=== PATIENT | male | born 1985 | race Caucasian/White ===

== ENCOUNTER 2018-05-05 20:22 | Inpatient (IN) | payer MEDICARE, OTHER ==
--- NOTE | 2018-05-05 21:16 | ED ---
General Adult HPI - General Chief complaint: Altered Mental Status Stated complaint: ALTERED MENTAL STATUS Source: patient, EMS Mode of arrival: EMS Limitations: no limitations - History of Present Illness Initial comments: Dictation was produced using [employer] dictation software. please excuse any grammatical, word or spelling errors. Chief Complaint: 33-year-old male past medical history of seizure disorder and cerebral palsy variant mental disorder presents with altered mental status for one month. History of Present Illness: Patient is a 33-year-old male with severe mental disability, seizure disorder presents with mental status changes. Patient is accompanied by mother. He has allegedly been having these symptoms for approximately one month. They were transported here via EMS because family does not have adequate wheeze or transportation. The called neurologist several days ago and was told to report to [facility] for patient's neurologist is located. Patient lives locally called EMS and they were transferred here. According to mother patient has been having these outbursts of mental status changes characterize as laughing, screaming uncontrollably for several hours patient has been exhibiting these behaviors for approximately one month with increasing frequency. Mother also reports that patient has been having choking episodes that are episodic. Mother denies any other symptoms of coughing, neck stiffness, diarrhea, vomiting. Mother is the primary locker room clerk. Patient is unable to provide HPI given severe baseline mental disability. - Related Data Home Medications Medication Instructions Recorded Confirmed Onfi 2.5mg/Ml 5 mg PO BID 05/06/18 05/06/18 Valproic Acid Oral Soln [Depakene 500 mg PO QID 05/06/18 05/06/18 Syrup] carBAMazepine [TEGretol Susp] 180 mg PO QID 05/06/18 05/06/18 levETIRAcetam 150 mg PO BID 05/06/18 05/06/18 Previous Rx's Medication Instructions Recorded Lactulose [Cephulac] 20 gm PO TID PRN #200 ml 05/07/18 Allergies Allergy/AdvReac Type Severity Reaction Status Date / Time No Known Allergies Allergy Verified 05/06/18 06:28 Review of Systems ROS Statement: Those systems with pertinent positive or pertinent negative responses have been documented in the HPI. ROS Other: All systems not noted in ROS Statement are negative. Past Medical History Past Medical History: Seizure Disorder Additional Past Medical History / Comment(s): [place] virus. History of Any Multi-Drug Resistant Organisms: None Reported Past Surgical History: Tonsillectomy Past Psychological History: No Psychological Hx Reported Smoking Status: Never smoker Past Alcohol Use History: None Reported Past Drug Use History: None Reported General Exam - General Exam Comments Initial Comments: PHYSICAL EXAM: General Impression: not in acute distress HEENT: Normocephalic atraumatic, extra-ocular movements intact, pupils equal and reactive to light bilaterally, mucous membranes moist, neck supple Cardiovascular: Heart regular rate and rhythm, S1&S2 audible, no murmurs, rubs or gallops Chest: Lungs clear to auscultation bilaterally, no rhonchi, no wheeze, no rales Abdomen: Bowel sounds present, abdomen soft, non-tender, non-distended, no organomegaly Musculoskeletal: Pulses present and equal in all extremities, no peripheral edema Neurological: CN II-XII grossly intact, no focal motor or sensory deficits noted Skin: Intact with no visualized rashes Limitations: no limitations Course Vital Signs 05/05/18 20:27 Temperature 97 F L Pulse Rate 105 H Respiratory 18 Rate Blood Pressure 130/78 O2 Sat by Pulse 96 Oximetry Medical Decision Making - Medical Decision Making ED course: 83-year-old male with chief complaint of mental status changes for approximately one month. Patient has complex medical history secondary to mental retardation . Patient hemodynamically stable. Afebrile.Laboratory evaluation was obtained. Complete blood count is normal. Metabolic panel shows findings within acceptable limits. Ammonia level is 93. Urinalysis is negative. Given these findings patient's clinical presentation is consistent with hepatic encephalopathy secondary to hyperammonemia. At this point it is unclear what is caused by however it may be likely due to antiseizure medications. Nonetheless, patient to be admitted for acute mental status changes. At this point it is unclear whether patient is at baseline currently however mother reports that he is not. Patient given oral lactulose. EKG interpretation: Ventricular rate 84. No TN prolongation, no QTC prolongation , no ST or T-wave changes noted. TN interval 158, QRS 88, QTC 404 Overall, this EKG is unremarkable - Lab Data Result diagrams: 05/05/18 21:24 05/05/18 21:24 Lab Results 05/05/18 05/05/18 05/05/18 Range/Units 21:24 21:24 21:24 WBC 6.8 (3.8-10.6) k/uL RBC 4.38 (4.30-5.90) m/uL Hgb 13.2 (13.0-17.5) gm/dL Hct 39.1 (39.0-53.0) % MCV 89.3 (80.0-100.0) fL MCH 30.2 (25.0-35.0) pg MCHC 33.8 (31.0-37.0) g/dL RDW 13.6 (11.5-15.5) % Plt Count 362 (150-450) k/uL Neutrophils % 49 % Lymphocytes % 36 % Monocytes % 10 % Eosinophils % 1 % Basophils % 1 % Neutrophils # 3.4 (1.3-7.7) k/uL Lymphocytes # 2.4 (1.0-4.8) k/uL Monocytes # 0.7 (0-1.0) k/uL Eosinophils # 0.0 (0-0.7) k/uL Basophils # 0.1 (0-0.2) k/uL Sodium 134 L (137-145) mmol/L Potassium 4.6 (3.5-5.1) mmol/L Chloride 98 (98-107) mmol/L Carbon Dioxide 24 (22-30) mmol/L Anion Gap 12 mmol/L BUN 15 (9-20) mg/dL Creatinine 0.40 L (0.66-1.25) mg/dL Est GFR (CKD-EPI)AfAm >90 (>60 ml/min/1.73 sqM) Est GFR (CKD-EPI)NonAf >90 (>60 ml/min/1.73 sqM) Glucose 95 (74-99) mg/dL Estimated Ave Glu mg/dL 94 Hemoglobin A1c 4.9 (4.0-6.0) % Calcium 9.9 (8.4-10.2) mg/dL Magnesium 1.7 (1.6-2.3) mg/dL Total Bilirubin 0.1 L (0.2-1.3) mg/dL AST 17 (17-59) U/L ALT 23 (21-72) U/L Alkaline Phosphatase 51 (38-126) U/L Ammonia (<30) umol/L Total Protein 7.2 (6.3-8.2) g/dL Albumin 4.5 (3.5-5.0) g/dL Urine Color Urine Appearance (Clear) Urine pH (5.0-8.0) Ur Specific [place] (1.001-1.035) Urine Protein (Negative) Urine Glucose (UA) (Negative) Urine Ketones (Negative) Urine Blood (Negative) Urine Nitrite (Negative) Urine Bilirubin (Negative) Urine Urobilinogen (<2.0) mg/dL Ur Leukocyte Esterase (Negative) Urine RBC (0-5) /hpf Urine WBC (0-5) /hpf Urine Bacteria (None) /hpf Urine Mucus (None) /hpf 05/05/18 05/05/18 Range/Units 21:24 23:00 WBC (3.8-10.6) k/uL RBC (4.30-5.90) m/uL Hgb (13.0-17.5) gm/dL Hct (39.0-53.0) % MCV (80.0-100.0) fL MCH (25.0-35.0) pg MCHC (31.0-37.0) g/dL RDW (11.5-15.5) % Plt Count (150-450) k/uL Neutrophils % % Lymphocytes % % Monocytes % % Eosinophils % % Basophils % % Neutrophils # (1.3-7.7) k/uL Lymphocytes # (1.0-4.8) k/uL Monocytes # (0-1.0) k/uL Eosinophils # (0-0.7) k/uL Basophils # (0-0.2) k/uL Sodium (137-145) mmol/L Potassium (3.5-5.1) mmol/L Chloride (98-107) mmol/L Carbon Dioxide (22-30) mmol/L Anion Gap mmol/L BUN (9-20) mg/dL Creatinine (0.66-1.25) mg/dL Est GFR (CKD-EPI)AfAm (>60 ml/min/1.73 sqM) Est GFR (CKD-EPI)NonAf (>60 ml/min/1.73 sqM) Glucose (74-99) mg/dL Estimated Ave Glu mg/dL Hemoglobin A1c (4.0-6.0) % Calcium (8.4-10.2) mg/dL Magnesium (1.6-2.3) mg/dL Total Bilirubin (0.2-1.3) mg/dL AST (17-59) U/L ALT (21-72) U/L Alkaline Phosphatase (38-126) U/L Ammonia 93 H (<30) umol/L Total Protein (6.3-8.2) g/dL Albumin (3.5-5.0) g/dL Urine Color Yellow Urine Appearance Clear (Clear) Urine pH 7.5 (5.0-8.0) Ur Specific [place] 1.027 (1.001-1.035) Urine Protein Trace H (Negative) Urine Glucose (UA) Negative (Negative) Urine Ketones Negative (Negative) Urine Blood Negative (Negative) Urine Nitrite Negative (Negative) Urine Bilirubin Negative (Negative) Urine Urobilinogen <2.0 (<2.0) mg/dL Ur Leukocyte Esterase Negative (Negative) Urine RBC 2 (0-5) /hpf Urine WBC 1 (0-5) /hpf Urine Bacteria Rare H (None) /hpf Urine Mucus Rare H (None) /hpf Disposition Clinical Impression: Altered mental status Disposition: ADMITTED IP TO THIS HOSP Condition: Good Time of Disposition: 01:00
[2018-05-05 21:41] LABS: Basophils # (A) 0.1 k/uL (0-0.2); Basophils % (A) 1 %; Eosinophils % (A) 1 %; HCT 39.1 % (39.0-53.0); HGB 13.2 gm/dL (13.0-17.5); Lymphocytes # (A) 2.4 k/uL (1.0-4.8); Lymphocytes % (A) 36 %; MCH 30.2 pg (25.0-35.0); MCHC 33.8 g/dL (31.0-37.0); MCV 89.3 fL (80.0-100.0); Mean Platelet Volume 6.3; Monocytes # (A) 0.7 k/uL (0-1.0); Monocytes % (A) 10 %; Neutrophils # (A) 3.4 k/uL (1.3-7.7); Neutrophils % (A) 49 %; Platelet Count 362 k/uL (150-450); RBC 4.38 m/uL (4.30-5.90); RDW 13.6 % (11.5-15.5); WBC 6.8 k/uL (3.8-10.6)
[2018-05-05 21:48] LABS: ALT 23 U/L (21-72); AST 17 U/L (17-59); Albumin 4.5 g/dL (3.5-5.0); Alkaline Phosphatase 51 U/L (38-126); Anion Gap 12 mmol/L; Blood Urea Nitrogen 15 mg/dL (9-20); Calcium 9.9 mg/dL (8.4-10.2); Carbon Dioxide 24 mmol/L (22-30); Chloride 98 mmol/L (98-107); Glucose 95 mg/dL (74-99); Magnesium 1.7 mg/dL (1.6-2.3); Potassium 4.6 mmol/L (3.5-5.1); Sodium 134 mmol/L (137-145); Total Bilirubin 0.1 mg/dL (0.2-1.3); Total Protein 7.2 g/dL (6.3-8.2)
--- NOTE | 2018-05-05 21:58 | XR ---
EXAMINATION TYPE: XR abdomen acute w cxr - 3V DATE OF EXAM: 05/05/2018 COMPARISON: NONE HISTORY: Pain, fever, unable to verbalize TECHNIQUE: Supine, upright, and left side down lateral decubitus views of the abdomen are obtained. FINDINGS: Visualized lung bases and pleural spaces are unremarkable. There is no evidence for pneumoperitoneum. The bowel gas pattern is remarkable for excessive colonic stool throughout the entirety of the colon and including the rectosigmoid. There is no isaac bowel obstruction. No sizeable air fluid levels. No mass or mass effect. No unusual calcifications. No acute skeletal findings. IMPRESSION: Marked constipation.
--- NOTE | 2018-05-05 22:17 | CT ---
EXAMINATION: CT brain wo con DATE AND TIME: 05/05/2018 9:49 PM ORDERING PROVIDER: Khanh Lopez DO CLINICAL INDICATION: Pain mental status changes TECHNIQUE: Standard departmental protocol. COMPARISON: None. DESCRIPTION: The calvarium is intact. There is no intracranial hemorrhage. There is no mass or mass effect. There is no definite new attenuation defect. There is prominent global atrophy, particularly up over the convexities. Remainder of the intra-axial and extra-axial compartment examination is negative for acute findings. The paranasal sinuses, middle ear cavities, and mastoid sinus air cells are clear. The orbits are int act. IMPRESSION: NO DEFINITE ACUTE PROCESS, CT WITHOUT CONTRAST.
[2018-05-06] MEDS ORDERED: cefTRIAXone IN SWFI 1,000 MG/10 ML SYRINGE IVP ONE (01:10)
[2018-05-06 05:38] VITALS: BMI 29.5
[2018-05-06 06:27] LABS: Appearance,Urine Clear (Clear); Bacteria,Urine Rare /hpf; Bilirubin,Urine Negative (Negative); Blood,Urine Negative (Negative); Color,Urine Yellow; Glucose,Urine (UA) Negative (Negative); Ketones,Urine Negative (Negative); Leukocyte Esterase,Urine Negative (Negative); Mucus,Urine Rare /hpf; Nitrite,Urine Negative (Negative); PH, Urine 7.5 (5.0-8.0); Protein,Urine Trace (Negative); RBC,Urine 2 /hpf (0-5); Specific Gravity,Urine 1.027 (1.001-1.035); Urobilinogen,Urine <2.0 mg/dL (<2.0); WBC,Urine 1 /hpf (0-5)
[2018-05-06] MEDS: FAMOTIDINE 20 MG/2 ML VIAL IV SCH ×2 (07:44→23:36)
[2018-05-06] MEDS ORDERED: BISACODYL 10 MG SUPP RECTAL STA (11:07)
--- NOTE | 2018-05-06 11:15 | P.CONS ---
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 Mother provided history. Upon admission serum elevated ammonia level 93. LFTs normal. White count 6.8. Hemoglobin 13.2. Platelet 362. No history of known liver disease hepatitis. Mother states he does CT of the abdomen and pelvis a month ago at [facility] evaluation for possible UTI no mentioning of any liver disease was told CT showed inflamed lymph nodes possible viral in nature. Patient has been on the same seizure medications for years with the exception of an additional medication that was at about 9 months ago called Clobazam; use for treatment of seizures caused by Ariel-Gastaut syndrome. Patient has not slept for more than 15 hours. He was screaming at home a lot prior to admission. Presently he is quite. No bowel movement for the last 6 days mother is requesting a laxative. No reports of hematemesis hematochezia or melena. Afebrile. Review of Systems Unable to obtain provided by mother Constitutional: Denies fever, chills, sweats, weight gain, or loss. Nonverbal. HEENT: Negative for migraines, blurred vision or loss, earaches, drainage, tinnitus, oral mucosal lesions, can only tolerate liquid diet no solids chronic dysphagia. Cardiac: Negative for chest pain, arrhythmias, or palpitation. Respiratory: Negative for shortness of breath, hemoptysis, cough, or sputum production. Gastrointestinal: See HPI for pertinent findings. Genitourinary: Negative for hematuria, urgency, frequency, polyuria, dysuria, or penile discharge. Musculoskeletal: Chronic extremity contractures bedridden nonambulatory. Neurologic: Negative for stroke or TIA. Endocrine: Negative for thyroid problems. Skin: Negative for rash or itching. Psychiatric: Negative history for depression and anxiety Past Medical History Past Medical History: Seizure Disorder Additional Past Medical History / Comment(s): West Nile Virus. Seizures - states that they are not grand mal seizures and are very mild but occur often. Patient has cerebral palsy. History of Any Multi-Drug Resistant Organisms: None Reported Past Surgical History: Tonsillectomy Past Anesthesia/Blood Transfusion Reactions: No Reported Reaction Past Psychological History: No Psychological Hx Reported Smoking Status: Never smoker Past Alcohol Use History: None Reported Past Drug Use History: None Reported Medications and Allergies Home Medications Medication Instructions Recorded Confirmed Type Onfi 2.5mg/Ml 5 mg PO BID 05/06/18 05/06/18 History Valproic Acid Oral Soln [Depakene 500 mg PO QID 05/06/18 05/06/18 History Syrup] carBAMazepine [TEGretol Susp] 180 mg PO QID 05/06/18 05/06/18 History levETIRAcetam 150 mg PO BID 05/06/18 05/06/18 History Lactulose [Cephulac] 20 gm PO TID PRN #200 ml 05/07/18 Rx Allergies Allergy/AdvReac Type Severity Reaction Status Date / Time No Known Allergies Allergy Verified 05/06/18 06:28 Physical Exam Vitals: Vital Signs Temp Pulse Pulse Resp BP BP Pulse Ox 05/06/18 07:30 98.8 F 90 16 104/59 95 05/06/18 02:00 99.0 F 96 16 122/68 98 05/05/18 20:27 97 F L 105 H 18 130/78 96 Intake and Output 05/05/18 05/06/18 05/06/18 22:59 06:59 14:59 Other: Voiding Method Diaper Diaper Incontinent Incontinent # Voids 2 Weight 68.946 kg 68.5 kg General appearance: The patient is alert, in no acute distress. HET: Head is normocephalic and atraumatic. Pupils are equal and reactive. Oropharynx is clear without lesions. Neck: Supple without lymphadenopathy. Trachea midline. Heart: S1 S2. Regular rate and rhythm. Lungs: No crackles or wheezes are heard. Abdomen: Soft, nontender, nondistended with bowel sounds. No peritoneal signs. No palpable organomegaly or masses. Extremities: Contracted extremities. Moves all extremities. Results CBC & Chem 7: 05/05/18 21:24 05/05/18 21:24 Labs: Abnormal Lab Results - Last 24 Hours (Table) 05/05/18 05/05/18 05/05/18 Range/Units 21:24 21:24 23:00 Sodium 134 L (137-145) mmol/L Creatinine 0.40 L (0.66-1.25) mg/dL Total Bilirubin 0.1 L (0.2-1.3) mg/dL Ammonia 93 H (<30) umol/L Urine Protein Trace H (Negative) Urine Bacteria Rare H (None) /hpf Urine Mucus Rare H (None) /hpf Assessment and Plan (1) Hyperammonemia Narrative/Plan: No clinical evidence to suggest liver disease possible medication valproic acid related possible clobazam. Clobazam recently prescribed about 9 months ago for treatment of seizures. Status: Acute Code(s): E72.20 - DISORDER OF UREA CYCLE METABOLISM, UNSPECIFIED SNOMED Code(s): 6974101 (2) Ariel-Gastaut syndrome Narrative/Plan: With seizures Status: Chronic Code(s): G40.812 - ARIEL-GASTAUT SYNDROME, NOT INTRACTABLE, W /O STAT EPI SNOMED Code(s): 696156221 (3) Constipated Status: Acute Code(s): K59.00 - CONSTIPATION, UNSPECIFIED SNOMED Code(s): 59314293 Plan: 1. Dulcolax suppository 1. Lactulose 20 g 3 times a day this will help with constipation as well as elevated ammonia level. Hold dose for diarrhea. 2. Repeat ammonia in a.m. 3. Will review CT A/P at [facility] last month; parent reports no mentioning of liver abnormalities. 4. Patient has an appointment with neurologist first week of June. Thank you for this kind referral and the opportunity to participate in the care of your patient. This consultation was discussed with Dr. Chris. The impression and plan of care have been directed as dictated.
[2018-05-06] MEDS: LACTULOSE 20 GM/30 ML CUP PO SCH ×3 (11:25→21:20)
[2018-05-06] MEDS: ONFI PO SCH (12:26)
[2018-05-06] MEDS: VALPROIC ACID 250 MG/5 ML PO SCH ×3 (12:26→23:33)
[2018-05-06] MEDS: CARBAMAZEPINE 100 MG/5 ML PO SCH ×3 (12:27→23:33)
[2018-05-06] MEDS: KEPPRA 100 MG/ML PO SCH ×2 (12:28→23:34)
[2018-05-06] MEDS ORDERED: levETIRAcetam ORAL SOLN 500 MG/5 ML CUP PO SCH (13:30)
[2018-05-06] MEDS ORDERED: CARBAMAZEPINE PO SCH (13:30)
[2018-05-06 14:06] LABS: Carbamazepine (Tegretol) 8.2 ug/mL
[2018-05-06 14:19] LABS: Valproic Acid (Depakene) 68.6 ug/mL
--- NOTE | 2018-05-06 15:12 | P.HPIM ---
History of Present Illness 33-year-old gentleman with a past medical history of [place]-Gastaut syndrome with seizures lifelong anti-seizure medications presents with agitation and insomnia intermittently over the last month. Mother provided history. For last month patient also had some but is personally changes and stating gaze because of which patient is concerned about seizures. Upon admission serum elevated ammonia level 93. Patient is on valproic acid which can cause elevated ammonia levels. Valproic acid will be discontinued will get the lab levels of Depakote, carbamazepine and Keppra area at patient was started on lactulose for constipation gastroneurology evaluated the patient no history was obtained from the patient. Review of Systems Unable to obtain Past Medical History Past Medical History: Seizure Disorder Additional Past Medical History / Comment(s): West Nile Virus. Seizures - states that they are not grand mal seizures and are very mild but occur often. Patient has cerebral palsy. History of Any Multi-Drug Resistant Organisms: None Reported Past Surgical History: Tonsillectomy Past Anesthesia/Blood Transfusion Reactions: No Reported Reaction Past Psychological History: No Psychological Hx Reported Smoking Status: Never smoker Past Alcohol Use History: None Reported Past Drug Use History: None Reported Medications and Allergies Home Medications Medication Instructions Recorded Confirmed Type Onfi 2.5mg/Ml 5 mg PO BID 05/06/18 05/06/18 History Valproic Acid Oral Soln [Depakene 500 mg PO QID 05/06/18 05/06/18 History Syrup] carBAMazepine [TEGretol Susp] 180 mg PO QID 05/06/18 05/06/18 History levETIRAcetam 150 mg PO BID 05/06/18 05/06/18 History Allergies Allergy/AdvReac Type Severity Reaction Status Date / Time No Known Allergies Allergy Verified 05/06/18 06:28 Physical Exam Vitals: Vital Signs Temp Pulse Pulse Resp BP BP Pulse Ox 05/06/18 07:30 98.8 F 90 16 104/59 95 05/06/18 02:00 99.0 F 96 16 122/68 98 05/05/18 20:27 97 F L 105 H 18 130/78 96 Intake and Output 05/06/18 05/06/18 05/06/18 06:59 14:59 22:59 Other: Voiding Method Diaper Diaper Incontinent Incontinent # Voids 2 1 Weight 68.5 kg PHYSICAL EXAMINATION: GENERAL: The patient is alert and nonverbal, not in any acute distress. Patient has some chronic contractures nonverbal HEENT: Pupils are round and equally reacting to light. EOMI. No scleral icterus. No conjunctival pallor. Normocephalic, atraumatic. No pharyngeal erythema. No thyromegaly. CARDIOVASCULAR: S1 and S2 present. No murmurs, rubs, or gallops. PULMONARY: Chest is clear to auscultation, no wheezing or crackles. ABDOMEN: Soft, nontender, nondistended, normoactive bowel sounds. No palpable organomegaly. MUSCULOSKELETAL: No joint swelling or deformity. EXTREMITIES: No cyanosis, clubbing, or pedal edema. NEUROLOGICAL: No new focal weakness but does have chronic contractures. SKIN: No rashes. Results CBC & Chem 7: 05/05/18 21:24 05/05/18 21:24 Labs: Abnormal Lab Results - Last 24 Hours (Table) 05/05/18 05/05/18 05/05/18 Range/Units 21:24 21:24 23:00 Sodium 134 L (137-145) mmol/L Creatinine 0.40 L (0.66-1.25) mg/dL Total Bilirubin 0.1 L (0.2-1.3) mg/dL Ammonia 93 H (<30) umol/L Urine Protein Trace H (Negative) Urine Bacteria Rare H (None) /hpf Urine Mucus Rare H (None) /hpf Microbiology - Last 24 Hours (Table) 05/05/18 23:00 Urine Culture - Preliminary Urine,Voided Thrombosis Risk Factor Assmnt - Choose All That Apply Any of the Below Risk Factors Present?: Yes Each Factor Represents 1 point: Medical pt on bed rest Other Risk Factors: Yes Each Risk Factor Represents 2 Points: Patient confined to bed Other congenital or acquired thrombophilia - If yes, enter type in comment: No Thrombosis Risk Factor Assessment Total Risk Factor Score: 3 Thrombosis Risk Factor Assessment Level: Moderate Risk Assessment and Plan Plan: - possibility of breakthrough seizure: Levels of his antiseizure medications will be obtained patient is an seizure precautions, and urology was consulted patient may need an EEG. Because of hyper ammoniemia valproic acid will be discontinued -Hyperammonemia and personality changes can be related to valproic acid which will be discontinued -Abel-Gastaut syndrome -Constipation: Lactulose should help with the hyperammonemia and constipation as well.
[2018-05-06 15:22] LABS: Hemoglobin A1C 4.9 % (4.0-6.0)
[2018-05-07] MEDS: ONFI PO SCH (03:59)
[2018-05-07] MEDS: CARBAMAZEPINE 100 MG/5 ML PO SCH (04:00)
[2018-05-07] MEDS: VALPROIC ACID 250 MG/5 ML PO SCH (04:00)
[2018-05-07 07:01] VITALS: BP 115/68; PULSE 110; RESP 18; TEMP 97.5
[2018-05-07] MEDS: LACTULOSE 20 GM/30 ML CUP PO SCH (09:27)
[2018-05-07] MEDS: FAMOTIDINE 20 MG/2 ML VIAL IV SCH (09:27)
--- NOTE | 2018-05-07 10:10 | CONS ---
CONSULTATION DATE OF CONSULTATION: 05/06/2018. CHIEF COMPLAINT: Seizure disorder and agitation. HISTORY OF PRESENT ILLNESS: The patient is a 33-year-old male who has a history of [place]-Gastaut syndrome and profound mental delay. He has a long-standing history of seizures since his childhood and is currently taking Keppra, Onfi, Depakote, and Tegretol at home. Over the past few days, he has been quite agitated and combative, which is not like his usual self. He does have occasional drop attacks, but has not had any full-blown generalized tonic- clonic seizures in quite a while, according to his mother. When he was brought into the emergency room, a CT scan of the brain was done, which showed no acute findings. His comprehensive metabolic profile and CBC showed no significant abnormalities. His serum ammonia level was elevated at 93. He was started on IV hydration and admitted for further workup and management. His repeat ammonia level has normalized to 25. His Depakote level and Tegretol levels were both therapeutic at 68.6 and 8.2 respectively. At the time of my evaluation, he is sleeping in his bed and appears to be comfortable. His mother states that his agitation has improved as he is now resting. PAST MEDICAL HISTORY: Abel-Gastaut syndrome, history of West Nile virus, profound mental delay, history of tonsillectomy. SOCIAL HISTORY: There is no history of any tobacco, alcohol, or drug use. FAMILY HISTORY: Noncontributory. HOME MEDICATIONS: Reviewed in the chart. ALLERGIES: No known drug allergies. REVIEW OF SYSTEM: Unable to obtain as the patient is nonverbal. PHYSICAL EXAM: Vital signs show a temperature of 96.6, pulse 93, respiration 18, blood pressure 126/77. GENERAL APPEARANCE: The patient is a male who appears sleeping. He is arousable, but is nonverbal. He does make occasional eye contact. HEENT: Normocephalic, atraumatic, no obvious facial asymmetry is seen. Neck is supple with no masses felt. CARDIOVASCULAR: Regular rate and rhythm. Abdomen is nondistended. Extremities showed no edema. Significant contractures are noticed. NEUROLOGICAL EXAM: The patient is arousable and does make eye contact. He is nonverbal. He does not follow any commands. No seizure-like activity is seen. No obvious facial asymmetry is seen on cranial nerve testing. Spasticity is noticed on muscle tone testing in all 4 extremities. IMPRESSION: 1. Abel-Gastaut syndrome, seizure disorder. 2. Increased agitation. 3. Hepatic encephalopathy. 4. Spasticity and contractures. RECOMMENDATION: The patient's seizures appear to be well controlled from a generalized tonic-clonic seizure standpoint. He does occasionally have drop attacks according to his mother, but the patient is usually bed bound. His current mental status changes could be due to his Keppra therapy. I had a lengthy discussion with the mother regarding the option of switching Keppra to Vimpat. At this time, she is hesitant about changing any of his seizure medications because this usually leads to breakthrough generalized tonic-clonic seizures. I do recommend that she continues to monitor the patient over the next few weeks and if the agitation gets worse, we can revisit this idea in the clinic. As for his spasticity and contractures, the patient would likely benefit from intrathecal baclofen therapy. This will also be discussed in outpatient clinic. No further inpatient neurological workup is needed. I will continue to follow with you as needed. TIFFANIE / VERO: [id number] /
--- NOTE | 2018-05-07 11:46 | P.PN ---
Subjective Progress Note Date: 05/07/18 Principal diagnosis: Hyperammonemia Serum ammonia normalize. Passing bowel movements. Family requesting discharge. Objective - Vital Signs Vital signs: Vital Signs Temp 97.5 F L 05/07/18 07:00 Pulse 110 H 05/07/18 07:00 Resp 18 05/07/18 07:00 BP 115/68 05/07/18 07:00 Pulse Ox 95 05/07/18 07:00 Intake & Output 05/06/18 05/07/18 05/07/18 18:59 06:59 18:59 Weight 68.5 kg Other: Voiding Method Diaper Diaper Incontinent Incontinent # Voids 2 2 # Bowel Movements 1 - Exam General appearance: The patient is alert, in no acute distress. HET: Head is normocephalic and atraumatic. Pupils are equal and reactive. Oropharynx is clear without lesions. Neck: Supple without lymphadenopathy. Trachea midline. Heart: S1 S2. Regular rate and rhythm. Lungs: No crackles or wheezes are heard. Abdomen: Soft, nontender, nondistended with bowel sounds. No peritoneal signs. No palpable organomegaly or masses. Extremities: Contracted extremities. Moves all extremities. - Labs CBC & Chem 7: 05/05/18 21:24 05/05/18 21:24 Labs: Microbiology - Last 24 Hours (Table) 05/05/18 23:00 Urine Culture - Preliminary Urine,Voided Assessment and Plan (1) Hyperammonemia Narrative/Plan: No clinical evidence to suggest liver disease possible valproic acid related possible clobazam. Clobazam recently prescribed about 9 months ago for treatment of seizures. 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 Discontinue lactulose. Discharge per medicine and neurology. Follow with GI as needed. 2. We'll defer recommendations for continuance of home medications seizure medications to neurology service. Assessment and plan a care discussed with Dr. Chris
--- NOTE | 2018-05-07 16:58 | DS ---
DISCHARGE SUMMARY FINAL DIAGNOSES: 1. Breakthrough seizures and uncontrolled seizures. 2. Hepatic encephalopathy. 3. Hyperammonemia. 4. Abel-Gastaut syndrome. 5. Constipation. DISCHARGE DISPOSITION: The patient discharged in stable condition with guarded prognosis. HISTORY OF PRESENT ILLNESS: This 33-year-old gentleman admitted with past medical history of multiple medical problems was admitted with breakthrough seizures and hyperammonemia, hepatic encephalopathy and constipation. The patient had lactulose. The patient improved significantly. Sensorium improved and the mother would like the patient to be discharged and discharge cleared by Dr. Guerrero also. On exam, vitals are stable. CARDIOVASCULAR: S1, S2. ABDOMEN: Soft. NERVOUS SYSTEM: Unchanged. DISCHARGE ADVICE AND MEDICATIONS: 1. Diet is cardiac. 2. Activities limited until followup. 3. Follow up with Dr. Mahajan in 2-3 days. 4. Follow with Neurology, Dr. Guerrero as recommended. MEDICATIONS: 1. Tegretol 180 mg p.o. q.i.d. 2. Keppra 150 mg p.o. b.i.d. 3. Valproic acid 1.5 mg p.o. b.i.d. 4. Lactulose 20 g t.i.d. p.r.n. Once again, the patient is being discharged in stable condition with guarded prognosis. See orders for list of medications. MMODL / IJN: [id number] /
== END 2018-05-07 12:14 | disposition home or self-care (01) | DRG 442 ==
LOC: EC 20:22 → 4MS4W 23:20
PROVIDERS: ADMIT Hospitalist; ATTEND Hospitalist
DX: K72.90 Hepatic failure, unspecified without coma (principal); F72 Severe intellectual disabilities; G40.812 Lennox-Gastaut syndrome, not intractable, without status epilepticus; E72.20 Disorder of urea cycle metabolism, unspecified; K59.00 Constipation, unspecified; G80.9 Cerebral palsy, unspecified; G47.00 Insomnia, unspecified; Z79.899 Other long term (current) drug therapy; Z98.890 Other specified postprocedural states
CPT/HCPCS: 36415; 70450; 74022; 80053; 80156; 80164; 80177; 81003; 82140; 83036; 83735; 85025; 87086; 93005; 99285

== ENCOUNTER 2018-05-13 13:49 | Inpatient (IN) | payer MEDICARE, OTHER ==
[2018-05-13 15:07] LABS: Appearance,Urine Clear (Clear); Bilirubin,Urine Negative (Negative); Blood,Urine Negative (Negative); Color,Urine Yellow; Glucose,Urine (UA) Negative (Negative); Ketones,Urine Trace (Negative); Leukocyte Esterase,Urine Negative (Negative); Nitrite,Urine Negative (Negative); Protein,Urine Trace (Negative); Specific Gravity,Urine 1.031 (1.001-1.035); Urobilinogen,Urine <2.0 mg/dL (<2.0)
[2018-05-13 15:11] LABS: Basophils # (A) 0.1 k/uL (0-0.2); Basophils % (A) 1 %; Eosinophils # (A) 0.1 k/uL (0-0.7); Eosinophils % (A) 1 %; HCT 39.5 % (39.0-53.0); HGB 12.9 gm/dL (13.0-17.5); Lymphocytes # (A) 2.6 k/uL (1.0-4.8); Lymphocytes % (A) 34 %; MCH 28.9 pg (25.0-35.0); MCHC 32.6 g/dL (31.0-37.0); MCV 88.7 fL (80.0-100.0); Mean Platelet Volume 6.8; Monocytes # (A) 0.6 k/uL (0-1.0); Monocytes % (A) 8 %; Neutrophils % (A) 52 %; Platelet Count 399 k/uL (150-450); RBC 4.45 m/uL (4.30-5.90); RDW 13.3 % (11.5-15.5); WBC 7.6 k/uL (3.8-10.6)
[2018-05-13 15:16] LABS: ALT 45 U/L (21-72); AST 20 U/L (17-59); Albumin 4.7 g/dL (3.5-5.0); Alkaline Phosphatase 67 U/L (38-126); Amylase 74 U/L (30-110); Anion Gap 12 mmol/L; Blood Urea Nitrogen 16 mg/dL (9-20); Calcium 10.1 mg/dL (8.4-10.2); Carbon Dioxide 24 mmol/L (22-30); Chloride 101 mmol/L (98-107); Glucose 91 mg/dL (74-99); Lipase 86 U/L (23-300); Potassium 4.8 mmol/L (3.5-5.1); Sodium 137 mmol/L (137-145); Total Bilirubin 0.1 mg/dL (0.2-1.3); Total Protein 7.5 g/dL (6.3-8.2)
--- NOTE | 2018-05-13 15:18 | ED ---
General Adult HPI - General Chief complaint: Abdominal Pain Stated complaint: Pain Time Seen by Provider: 05/13/18 13:51 Source: family, EMS, RN notes reviewed Mode of arrival: EMS Limitations: altered mental status - History of Present Illness Initial comments: 33-year-old male with significant mental disability presents to the emergency department for a chief complaint of altered mental status. Patient was recently diagnosed with hepatic encephalopathy and treated in this hospital. He was discharged 4 days ago. Mother states patient was returning to a normal baseline over the past few days. However last night patient began having symptoms similar to when his ammonia levels were increased. Mother states patient has been moaning since 9 PM last night and turning his head back and forth. Patient has not slept in over 24 hours. Mother is concerned that ammonia levels are high again.Patient has no other complaints at this time including shortness of breath, chest pain, abdominal pain, nausea or vomiting, headache, or visual changes. - Related Data Home Medications Medication Instructions Recorded Confirmed Onfi 2.5mg/Ml 5 mg PO BID 05/06/18 05/13/18 Valproic Acid Oral Soln [Depakene 500 mg PO QID 05/06/18 05/13/18 Syrup] carBAMazepine [TEGretol Susp] 180 mg PO QID 05/06/18 05/13/18 levETIRAcetam [levETIRAcetam Oral 150 mg PO BID 05/06/18 05/13/18 Solution] Previous Rx's Medication Instructions Recorded Lactulose [Cephulac] 20 gm PO TID PRN #200 ml 05/07/18 Allergies Allergy/AdvReac Type Severity Reaction Status Date / Time No Known Allergies Allergy Verified 05/13/18 14:40 Review of Systems ROS Statement: Those systems with pertinent positive or pertinent negative responses have been documented in the HPI. ROS Other: All systems not noted in ROS Statement are negative. Past Medical History Past Medical History: Seizure Disorder Additional Past Medical History / Comment(s): [place] virus. enchelopathy History of Any Multi-Drug Resistant Organisms: None Reported Past Surgical History: Tonsillectomy Past Anesthesia/Blood Transfusion Reactions: No Reported Reaction Past Psychological History: No Psychological Hx Reported Smoking Status: Never smoker Past Alcohol Use History: None Reported Past Drug Use History: None Reported General Exam Limitations: altered mental status Head exam: Present: atraumatic, normocephalic, normal inspection Eye exam: Present: normal appearance. Absent: scleral icterus, conjunctival injection ENT exam: Present: normal exam, mucous membranes moist Respiratory exam: Present: normal lung sounds bilaterally. Absent: respiratory distress, wheezes, rales, rhonchi, stridor Cardiovascular Exam: Present: regular rate, normal rhythm, normal heart sounds. Absent: systolic murmur, diastolic murmur, rubs, gallop, clicks GI/Abdominal exam: Present: soft, normal bowel sounds. Absent: distended, tenderness, guarding, rebound, rigid Course Vital Signs 05/13/18 13:53 Temperature 97.3 F L Pulse Rate 91 Respiratory 18 Rate Blood Pressure 150/73 O2 Sat by Pulse 96 Oximetry Medical Decision Making - Medical Decision Making 33-year-old male presents to the emergency department for a chief complaint of altered mental status. Patient has a history of hepatic encephalopathy in the past week and was discharged from the hospital 4 days ago. Mother states patient was almost back to baseline over the past few days. However, patient has been moaning since 9 PM last night and turning his head back and forth, which he is doing in the ED. He has not slept in over 24 hours. CBC and CMP unremarkable. Ammonia levels did increase 20 points in the past 20 days. Mother is very upset that patient will not sleep and she cannot care for him like this. Mother states that she has afraid his ammonia levels are going back up to the were as he is acting how he did on admission. Patient will be admitted for further management. He was given a dose of lactulose in the emergency department. - Lab Data Result diagrams: 05/13/18 14:43 05/13/18 14:43 Lab Results 05/13/18 05/13/18 05/13/18 Range/Units 14:43 14:43 14:43 WBC 7.6 (3.8-10.6) k/uL RBC 4.45 (4.30-5.90) m/uL Hgb 12.9 L (13.0-17.5) gm/dL Hct 39.5 (39.0-53.0) % MCV 88.7 (80.0-100.0) fL MCH 28.9 (25.0-35.0) pg MCHC 32.6 (31.0-37.0) g/dL RDW 13.3 (11.5-15.5) % Plt Count 399 (150-450) k/uL Neutrophils % 52 % Lymphocytes % 34 % Monocytes % 8 % Eosinophils % 1 % Basophils % 1 % Neutrophils # 4.0 (1.3-7.7) k/uL Lymphocytes # 2.6 (1.0-4.8) k/uL Monocytes # 0.6 (0-1.0) k/uL Eosinophils # 0.1 (0-0.7) k/uL Basophils # 0.1 (0-0.2) k/uL Sodium 137 (137-145) mmol/L Potassium 4.8 (3.5-5.1) mmol/L Chloride 101 (98-107) mmol/L Carbon Dioxide 24 (22-30) mmol/L Anion Gap 12 mmol/L BUN 16 (9-20) mg/dL Creatinine 0.40 L (0.66-1.25) mg/dL Est GFR (CKD-EPI)AfAm >90 (>60 ml/min/1.73 sqM) Est GFR (CKD-EPI)NonAf >90 (>60 ml/min/1.73 sqM) Glucose 91 (74-99) mg/dL Calcium 10.1 (8.4-10.2) mg/dL Total Bilirubin 0.1 L (0.2-1.3) mg/dL AST 20 (17-59) U/L ALT 45 (21-72) U/L Alkaline Phosphatase 67 (38-126) U/L Ammonia 49 H (<30) umol/L Total Protein 7.5 (6.3-8.2) g/dL Albumin 4.7 (3.5-5.0) g/dL Amylase 74 (30-110) U/L Lipase 86 (23-300) U/L Urine Color Urine Appearance (Clear) Urine pH (5.0-8.0) Ur Specific [place] (1.001-1.035) Urine Protein (Negative) Urine Glucose (UA) (Negative) Urine Ketones (Negative) Urine Blood (Negative) Urine Nitrite (Negative) Urine Bilirubin (Negative) Urine Urobilinogen (<2.0) mg/dL Ur Leukocyte Esterase (Negative) 05/13/18 Range/Units 14:43 WBC (3.8-10.6) k/uL RBC (4.30-5.90) m/uL Hgb (13.0-17.5) gm/dL Hct (39.0-53.0) % MCV (80.0-100.0) fL MCH (25.0-35.0) pg MCHC (31.0-37.0) g/dL RDW (11.5-15.5) % Plt Count (150-450) k/uL Neutrophils % % Lymphocytes % % Monocytes % % Eosinophils % % Basophils % % Neutrophils # (1.3-7.7) k/uL Lymphocytes # (1.0-4.8) k/uL Monocytes # (0-1.0) k/uL Eosinophils # (0-0.7) k/uL Basophils # (0-0.2) k/uL Sodium (137-145) mmol/L Potassium (3.5-5.1) mmol/L Chloride (98-107) mmol/L Carbon Dioxide (22-30) mmol/L Anion Gap mmol/L BUN (9-20) mg/dL Creatinine (0.66-1.25) mg/dL Est GFR (CKD-EPI)AfAm (>60 ml/min/1.73 sqM) Est GFR (CKD-EPI)NonAf (>60 ml/min/1.73 sqM) Glucose (74-99) mg/dL Calcium (8.4-10.2) mg/dL Total Bilirubin (0.2-1.3) mg/dL AST (17-59) U/L ALT (21-72) U/L Alkaline Phosphatase (38-126) U/L Ammonia (<30) umol/L Total Protein (6.3-8.2) g/dL Albumin (3.5-5.0) g/dL Amylase (30-110) U/L Lipase (23-300) U/L Urine Color Yellow Urine Appearance Clear (Clear) Urine pH 6.0 (5.0-8.0) Ur Specific [place] 1.031 (1.001-1.035) Urine Protein Trace H (Negative) Urine Glucose (UA) Negative (Negative) Urine Ketones Trace H (Negative) Urine Blood Negative (Negative) Urine Nitrite Negative (Negative) Urine Bilirubin Negative (Negative) Urine Urobilinogen <2.0 (<2.0) mg/dL Ur Leukocyte Esterase Negative (Negative) Disposition Clinical Impression: Altered mental status, Hyperammonemia Disposition: ADMITTED IP TO THIS HOSP Condition: Good Is patient prescribed a controlled substance at d/c from ED?: No Referrals: Aidan Mahajan MD [Primary Care Provider] - 1-2 days Time of Disposition: 16:41
--- NOTE | 2018-05-13 16:18 | XR ---
EXAMINATION TYPE: XR chest 1V DATE OF EXAM: 05/13/2018 COMPARISON: 02/02/2010 HISTORY: 33-year-old male with pain TECHNIQUE: Single frontal view of the chest is obtained. FINDINGS: Low lung volumes crowding the vascular markings. Heart appears borderline enlarged. Diffuse hazy dens ities throughout the lungs. There are very low lung volumes limit assessment. No consolidation or ple ural effusion. IMPRESSION: Very low lung volumes limits assessment. Diffuse hazy densities could be secondary to diffuse general ized atelectasis. Consider repeat with better inspiration.
[2018-05-13] MEDS ORDERED: NALOXONE 0.4 MG/ML 1 ML VIAL IV PRN (16:36)
[2018-05-13] MEDS ORDERED: LACTULOSE 20 GM/30 ML CUP PO ONE (16:38)
[2018-05-13 18:12] VITALS: BMI 29.7
[2018-05-13] MEDS ORDERED: LACTULOSE 20 GM/30 ML CUP PO PRN (19:16)
[2018-05-13] MEDS: SODIUM CHLORIDE 0.9% 1,000 ML IV SCH (20:45)
[2018-05-13] MEDS ORDERED: ONFI PO SCH (21:00)
[2018-05-13] MEDS ORDERED: CLOBAZAM PO SCH (21:00)
[2018-05-13] MEDS ORDERED: levETIRAcetam ORAL SOLN 500 MG/5 ML CUP PO SCH (21:00)
[2018-05-13] MEDS: LEVETIRACETAM PO SCH ×2 (21:45→22:13)
[2018-05-13] MEDS ORDERED: VALPROIC ACID PO SCH (22:00)
[2018-05-13] MEDS ORDERED: CARBAMAZEPINE PO SCH ×2 (22:00)
[2018-05-13] MEDS ORDERED: [UNRECOGNIZED DRUG - OTHER] PO SCH (22:00)
[2018-05-13] MEDS ORDERED: VALPROIC ACID ORAL SOLN 250 MG/5 ML CUP PO SCH (22:00)
--- NOTE | 2018-05-13 22:22 | HP ---
HISTORY AND PHYSICAL DATE OF ADMISSION: 05/13/2018. DATE OF SERVICE: 05/13/2018 PRESENTING COMPLAINT: Shouting loud. HISTORY OF PRESENTING COMPLAINT: This is a 33-year-old patient of Dr. Aidan Mahajan. The patient is nonverbal. History is obtained by the mother at the bedside. The patient at the age of 8 developed high- grade fever up to 105 and had multiple seizures. At that time the mother was told that he only has a little bit of brain stem function left. Subsequently, the patient has been bed-bound, now 33 years of age. At baseline, the patient can understand mother and some family members, pretty much bed-bound. Lower limbs are contracted and short. The patient has to have a soft pureed diet, has a bowel movement every 2 or 3 days. The patient has seizure nearly every day, also has a diagnosis of [place]-Gastaut syndrome. The patient is on antiseizure medications. The patient presented with an episode of lately shouting, making loud noises and after a few hours, the patient's mother brought the patient in. There was no fever, no white count. The patient did not seem to point to any part of the body in particular. There was no cellulitis or breakdown of skin. Later on, the patient settled down and ate something and then dozed off. The patient's ammonia level was found to be a bit elevated in the ER. The patient was given lactulose. REVIEW OF SYSTEMS: Review of systems cannot be obtained from the patient, as patient is nonverbal. Any relevant information as above including, constitutional, HEENT, respiratory, cardiovascular, genitourinary, musculoskeletal, dermatologic, hematological, psychiatry, neurological as above. PAST MEDICAL HISTORY: Seizure disorder, possibly history of [place] virus and history of childhood febrile seizures. PAST SURGICAL HISTORY: Tonsillectomy, social history, bed-bound. No smoking. No alcohol. Lives with his mother. FAMILY HISTORY: Hypertension. HOME MEDICATIONS: 1. Keppra 550 mg p.o. b.i.d. 2. Tegretol 180 mg p.o. q.i.d. 3. Depakene 500 mg p.o. q.i.d. 4. Onfi going 5 mg p.o. b.i.d. 5. Lactulose 20 g p.o. t.i.d. p.r.n. ALLERGIES: None. EXAMINATION: Temperature 97.3, pulse 94, respirations 18, blood pressure 150/73, pulse ox 96% on room air. GENERAL APPEARANCE: Average build, lying in bed, eyes closed, limbs folded. HEENT: Eyes are closed, could not be examined. External nose and ears normal. Oral cavity dry. NECK: JVD unable to assess. Mass not palpable. RESPIRATORY: Effort normal. Lungs are clear. CARDIOVASCULAR: First and second sounds normal. No edema. ABDOMEN: Soft, nontender. Liver and spleen not palpable. LYMPHATIC: No lymph node palpable in neck or axillae. PSYCHIATRY: Unable to assess. Patient is nonverbal. NEUROLOGICAL: The patient's eyes are closed. No facial asymmetry. The patient's limbs are contracted. INVESTIGATIONS: White count 7.6, hemoglobin 12.9. Potassium 4.8, BUN 16, creatinine 0.40. Ammonia 49. UA: Trace of ketones. 1. This is a patient presented with episodes of shouting, persisting, that could be flare up of David-Gastaut syndrome. 2. Hyperammonemia anemia. 3. Chronic seizure disorder. 4. Chronic medical debility. PLAN: Care was discussed with the mother at the bedside. Home medications are continued. Lactulose was to be given. There is no fever, no white count. I do not suspect underlying infection. Will keep a close eye on the patient. I want the mother to be by the patient's bedside, as patient does find comfort in the mother and she is one of the very few people he communicates with, as he cannot talk. MMODL / IJN: [id number] /
[2018-05-14] MEDS: CLOBAZAM PO SCH ×3 (01:49→05:51)
[2018-05-14] MEDS: VALPROIC ACID PO SCH ×2 (03:19→12:03)
[2018-05-14] MEDS: [UNRECOGNIZED DRUG - OTHER] PO SCH ×2 (03:22→12:03)
[2018-05-14] MEDS: CARBAMAZEPINE PO SCH ×2 (03:22→12:03)
[2018-05-14] MEDS: SODIUM CHLORIDE 0.9% 1,000 ML IV SCH ×2 (05:12→12:04)
[2018-05-14 07:58] VITALS: BP 86/63; PULSE 86; RESP 20; TEMP 98.4
[2018-05-14] MEDS ORDERED: LEVETIRACETAM PO SCH (12:00)
--- NOTE | 2018-05-16 07:34 | DS ---
DISCHARGE SUMMARY DATE OF ADMISSION: May 13, 2018. DATE OF DISCHARGE: May 14, 2018. FINAL DIAGNOSES: 1. 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 2. Hyperammonemia, mild. 3. Chronic seizure disorder. 4. Chronic medical debility. 5. Chronic dysphagia. HOSPITAL COURSE: This is a 33-year-old patient who all of a sudden developed high-grade fever and multiple seizures. Since then the patient is pretty much bed bound, can only follow his mother and some family members. Does not communicate. Limbs are contracted. Is on a soft pureed diet, has to be fed. The patient presented with episodes of sharp pain. There was no fever, no white count, no abdominal tenderness. The patient eventually settled down. It is felt that the patient have may have had a flare-up of [place] Gastaut Syndrome. The patient's ammonia was very slightly elevated. Did get some for the same. On examination, abdomen soft, nontender. The patient is awake, does not really follow commands. DISCHARGE MEDICATIONS: 1. Onfi 2.5 mg/cc that is 5 mg p.o. b.i.d. 2. Depakene 500 mg p.o. q.i.d. 3. Tegretol 180 mg p.o. b.i.d. 4. Keppra 1500 mg p.o. b.i.d. 5. Lactulose 20 g p.o. t.i.d. p.r.n. 6. Metamucil 6 grams p.o. b.i.d. Follow up with Dr. Mahajan in 3-5 days. Follow up with Dr. Guerrero in 1 week. Pureed diet. Aspiration precautions to continue as before. Care was discussed in detail with the mother. Questions were answered. She will keep an appointment with Dr. Guerrero. Discussion and discharge planning more than [address] Mahajan. MMGENNAROL / IJN: [id number] /
== END 2018-05-14 15:55 | disposition home or self-care (01) | DRG 101 ==
LOC: EEVIPCON 13:49 → EC 13:49 → 4MS4W 17:27
PROVIDERS: ADMIT Hospitalist; ATTEND Hospitalist
DX: G40.812 Lennox-Gastaut syndrome, not intractable, without status epilepticus (principal); E72.20 Disorder of urea cycle metabolism, unspecified; G40.909 Epilepsy, unspecified, not intractable, without status epilepticus; R13.10 Dysphagia, unspecified; R53.81 Other malaise; M62.462 Contracture of muscle, left lower leg; M62.461 Contracture of muscle, right lower leg; Z74.01 Bed confinement status; Z79.899 Other long term (current) drug therapy; Z82.49 Family history of ischemic heart disease and other diseases of the circulatory system
CPT/HCPCS: 36415; 71045; 80053; 81003; 82140; 82150; 83690; 85025; 99285